=== PATIENT | female | born 1935 | race Two or more races ===

== ENCOUNTER 2017-12-15 14:13 | Inpatient (IN) | payer MEDICARE, MEDICAID ==
--- NOTE | 2017-12-15 15:02 | ED Physician Chart ---
ED Chief Complaint/HPI - Patient Information Date Seen:: 12/15/17 Time Seen:: 14:50 Chief Complaint:: confusion History of Present Illness:: Patient's been demonstrating increasing confusion at home. Patient has a history dementia and her daughter is no longer able to take care of her at home. She is here for admission to [facility] and then to be admitted to a correction facility. Patient is in hospice secondary to mesenteric ischemia. Allergies:: Allergies Allergy/AdvReac Type Severity Reaction Status Date / Time No Known Allergies Allergy Verified 12/15/17 14:29 Historian:: Family Member Review:: Nurse's Note Reviewed ED Review of Systems - Review of Systems General/Constitutional: No fever, No chills Skin: No skin lesions Head: No headache Eyes: No loss of vision ENT: No earache Neck: No neck pain Cardio Vascular: No chest pain, No palpitations Pulmonary: No SOB GI: No nausea, No vomiting, No diarrhea G/U: No dysuria Musculoskeletal: No bone or joint pain Endocrine: No polyuria, No polydipsia Psychiatric: Prior psych history Hematopoietic: No bruising Allergic/Immuno: No urticaria Neurological: No syncope, No focal symptoms ED Past Medical History - Past Medical History Past Medical History: HTN, Dyslipidemia, PUD/GERD, Arthritis, Other (diabetes; diverticulosis; mesenteric ischemia; osteoporosis; neuropathy; chronic abdominal pain secondary to mesenteric ischemia) Family History: None Social History: Non Smoker, No Alcohol Surgical History: Appendectomy, other (craniotomy for tumor) Psychiatricy History: Dementia Medication: Reviewed ED Labs/Radiology/EKG Results - Lab Results Results: Laboratory Results - last 24 hr 12/15/17 12/15/17 12/15/17 15:06 15:06 15:06 WBC 6.8 RBC 4.30 Hgb 12.2 Hct 37.1 L MCV 86.1 MCH 28.4 MCHC Differential 33.0 RDW 14.5 Plt Count 378 MPV 7.7 Neutrophils % 73.3 Lymphocytes % 19.6 L Monocytes % 5.8 Eosinophils % 0.1 Basophils % 1.2 Sodium 134 L Potassium 4.3 Chloride 100 Carbon Dioxide 26.1 Anion Gap 12.2 BUN 16 Creatinine 0.9 Est GFR ( Amer) TNP Est GFR (Non-Af Amer) TNP BUN/Creatinine Ratio 17.8 Glucose 104 Calcium 10.2 Total Bilirubin 0.2 L AST 13 ALT 10 Alkaline Phosphatase 51 Total Protein 7.1 Albumin 4.1 Globulin 3.0 Albumin/Globulin Ratio 1.4 Triglycerides 166 H Cholesterol 200 LDL Cholesterol Direct 129 HDL Cholesterol 37 TSH 11.97 H Salicylates < 25.0 L Acetaminophen 12.1 Ethyl Alcohol < 10 - Radiology Results Results: CAT scan of abdomen and pelvis showed diverticulosis without diverticulitis - EKG Interpretations Rate & Rhythm: normal sinus rhythm with a rate of 60 [place]: normal ED Septic Shock - . Is Septic Shock (SBP<90, OR Lactate>4 mmol\L) present?: No ED Reassessment (Disposition) - Reassessment Reassessment Condition:: Unchanged - Diagnosis Diagnosis:: Dementia; mesenteric ischemia - Patient Disposition Admitted to:: [facility] Condition at Disposition:: Stable, Unchanged
[2017-12-15 15:13] LABS: % BASOPHILS 1.2 % (0.0-2.0); % EOSINOPHILS 0.1 % (0.0-5.0); % LYMPHOCYTES 19.6 % (20.0-50.0); % MONOCYTES 5.8 % (2.0-10.0); % NEUTROPHILS 73.3 % (40.0-80.0); BASOPHILE ABSOLUTE 0.1 Th/cumm (0-0.2); HEMATOCRIT 37.1 % (41.0-60); HEMOGLOBIN 12.2 gm/dL (12-16); LYMPHOCYTE ABSOLUTE 1.3 Th/cmm (1.5-3.0); MEAN CELL VOLUME 86.1 fl (81-100); MEAN CORPUSCULAR HEMOGLOBIN 28.4 pg (27.0-31.0); MEAN PLATELET VOLUME 7.7 fl; MONOCYTE ABSOLUTE 0.4 Th/cmm (0.3-1.0); PLATELET COUNT 378 Th/cmm (150-400); RED CELL DISTRIBUTION WIDTH 14.5 % (11.5-20.0); WHITE BLOOD COUNT 6.8 Th/cmm (4.8-10.8)
[2017-12-15] MEDS ORDERED: Morphine Sulfate 2 mg/mL 1mL Syr IV STA (15:14)
[2017-12-15] MEDS ORDERED: Morphine Sulfate 2 mg/mL 1mL Syr ONE (15:32)
[2017-12-15 15:41] LABS: ACETAMINOPHEN 12.1 ug/mL (10.0-30.0); ALB/GLOB RATIO 1.4 (1.0-1.8); ALBUMIN 4.1 gm/dL (3.7-5.3); ALKALINE PHOSPHATASE 51 U/L (34-104); ANION GAP 12.2 (7.0-16.0); BILIRUBIN,TOTAL 0.2 mg/dL (0.3-1.0); BUN - UREA NITROGEN 16 mg/dL (7-25); CALCIUM SERUM 10.2 mg/dL (8.6-10.3); CARBON DIOXIDE 26.1 mEq/L (21.0-31.0); CHLORIDE 100 mEq/L (98-107); CHOLESTEROL 200 mg/dL (<200); CREATININE - SERUM 0.9 mg/dL (0.6-1.2); GLUCOSE 104 mg/dL (70-105); HDL -HIGH DENSITY LIPOPROTEIN 37 mg/dL (23-92); POTASSIUM SERUM 4.3 mEq/L (3.5-5.1); SALICYLATES (ASPIRIN) < 25.0 mg/L (30.0-100.0); SGOT 13 U/L (13-39); SGPT/ALT 10 U/L (7-52); SODIUM SERUM 134 mEq/L (136-145); TOTAL PROTEIN,SERUM 7.1 gm/dL (6.0-8.3); TRIGLYCERIDES 166 mg/dL (<150)
[2017-12-15 16:31] LABS: URINE SOURCE RANDOM
[2017-12-15 16:35] LABS: URINE BILIRUBIN NEGATIVE (NEGATIVE); URINE BLOOD NEGATIVE (NEGATIVE); URINE GLUCOSE (UA) NEGATIVE (NEGATIVE); URINE KETONE TRACE mg/dL (NEGATIVE); URINE LEUKOCYTE ESTERASE NEGATIVE (NEGATIVE); URINE NITRATE NEGATIVE (NEGATIVE); URINE PROTEIN NEGATIVE (NEGATIVE); URINE UROBILINOGEN 0.2 E.U./dL (0.2 - 1.0)
[2017-12-15 16:36] LABS: URINE CLARITY CLEAR (CLEAR); URINE COLOR YELLOW; URINE MICROSCOPIC INDICATED? YES
[2017-12-15 16:48] LABS: URINE RBC NONE SEEN /hpf (0-5)
[2017-12-15 16:49] LABS: URINE BACTERIA FEW /hpf (NONE SEEN); URINE EPITHELIAL CELLS NONE SEEN /lpf (FEW); URINE WBC 0-2 /hpf (0-5)
[2017-12-15 16:50] LABS: AMPHETAMINE URINE NEGATIVE (NEGATIVE); BARBITURATES URINE NEGATIVE (NEGATIVE); BENZODIAZEPINES QUAL URINE POSITIVE (NEGATIVE); CANNABINOID THC NEGATIVE (NEGATIVE); COCAINE METABOLITE QUAL URINE NEGATIVE (NEGATIVE); METHADONE URINE POSITIVE (NEGATIVE); METHAMPHETAMINES QUAL URINE NEGATIVE (NEGATIVE); OPIATES (MORPHINE) QUAL. URINE NEGATIVE (NEGATIVE); PHENCYCLIDINE (PCP) URINE NEGATIVE (NEGATIVE); TRICYCLICS (TCA) QUAL. URINE NEGATIVE (NEGATIVE)
[2017-12-15 18:33] VITALS: BP 165/86
[2017-12-15 21:05] LABS: CHOLESTEROL 202 mg/dL (<200); HDL -HIGH DENSITY LIPOPROTEIN 39 mg/dL (23-92); TRIGLYCERIDES 168 mg/dL (<150)
[2017-12-16] MEDS ORDERED: Magnesium Hydroxide (MOM) 30 mL UDC PO PRN (04:29)
[2017-12-16] MEDS: Multivitamin Tab PO SCH (08:06)
--- NOTE | 2017-12-16 08:56 | Diagnostic Imaging Report ---
KUB single view HISTORY: Abdominal pain. COMPARISON: CT abdomen and pelvis on 12/15/2017 FINDINGS: Gas-distended stomach and gas-filled loops of bowel are noted in an overall nonspecific pattern. Degenerative changes spine are noted. Cholecystectomy clips are noted. Atherosclerosis is noted. IMPRESSION: Nonspecific bowel gas pattern. Evidence of prior cholecystectomy.
--- NOTE | 2017-12-16 08:59 | Diagnostic Imaging Report ---
CT abdomen and pelvis without intravenous contrast Indication: Mesenteric ischemia Comparison: None, Technique: Axial images were obtained from the lung bases to the bilateral proximal femurs without IV contrast. Coronal reconstructions were made. total DLP: 324, CTDI7 FINDINGS: Chronic changes of the lung bases are seen with hypoventilatory and atelectatic changes. Assessment of the solid organs is limited due to lack of IV contrast. No evidence of focal hepatic lesions. Patient status post cholecystectomy. No focal splenic or hepatic lesions. No focal adrenal lesions. No evidence of hydronephrosis or focal renal lesions. Diverticulosis is noted. Exam is limited due to motion. No definite evidence of diverticulitis. Appendix is not visualized. No free fluid or free air. Mildly distended urinary bladder is noted. Diffuse atherosclerosis is noted. Degenerative changes of the spine are noted. IMPRESSION: Diffuse diverticulosis. No evidence of diverticulitis. Evidence of cholecystectomy Mildly distended urinary bladder Diffuse Atherosclerotic vascular disease. There is no significant focal bowel wall thickening on this noncontrast exam. Given patient's clinical history indicated follow up CT angiogram, mesenteric ischemia protocol may also be obtained.
--- NOTE | 2017-12-16 12:20 | Psychiatric Evaluation ---
DATE OF SERVICE: 12/15/2017 IDENTIFYING DATA: The patient is an 82-year-old woman, currently at home. Information obtained by directly interviewing the patient as well as reviewing the admission papers and they are reliable. JUSTIFICATION OF HOSPITALIZATION: The patient is admitted in view of her noncompliance with the medications and agitation. CHIEF COMPLAINT: "I don't know." HISTORY OF PRESENT ILLNESS: This is the first psychiatric hospitalization to [facility] for this patient who is reported to have been reluctant to comply with the medication due to the evaluation, the patient has been complaining of pain in the lower extremity and a KUB. X-ray is added to see if there is any obstruction. The patient at this time is not providing much of information and is stating that she could not it out why she has to be here. PAST PSYCHIATRIC HISTORY: Details are not known. MEDICAL HISTORY: Physical examination is requested by Dr. Valentin. SUBSTANCE ABUSE HISTORY: None. PHYSICAL OR SEXUAL ABUSE HISTORY: None. LEGAL PROBLEMS: None at this time. STRENGTH AND ASSETS MENTAL STATUS EXAMINATION: The patient is an 82-year-old woman primarily Ecuadorean speaking, superficially cooperative. Eye contact is poor. Mood is noted to be depressed. Affect is constricted. The patient is feeling frustrated. The patient is not suicidal or homicidal, but the patient is reported to have been reluctant to take the medications and has been screaming and yelling, but so far, I have not seen that one, but the patient is too weak to answer any of the questions. Short and long-term memory are noted to be very poor. The patient is not able to contract for safety at this time. DIAGNOSTIC IMPRESSION: AXIS IA: Depressive disorder, not otherwise specified AXIS IB: Dementia and behavioral change, secondary to it. AXIS II: None. AXIS III: As per Dr. Valentin. IMMEDIATE TREATMENT PLAN: The patient is going to be observed on inpatient unit, provided with supportive psychotherapy. The patient is going to be closely monitored and encouraged to verbalize the concerns rather than to act out. JOB# [id number]
--- NOTE | 2017-12-16 16:02 | History & Physical ---
ADMIT DATE: 12/15/2017 INCOMPLETE DICTATION HISTORY OF PRESENT ILLNESS: The patient is an elderly female patient. The patient is known to have history of dementia and she came from home for altered level of consciousness, confusion, increasing agitation. The patient is known to have history of hypertension, arthritis, hyperlipidemia, also osteoporosis, neuropathy, chronic abdominal pain, and history of mesenteric ischemia. The patient has no other problem. No fever, no chills, no rigors, no other problems. PHYSICAL EXAMINATION: HEAD: Normal. ENT: Normal. NECK: Supple, nontender. LUNGS: Clear. CARDIOVASCULAR SYSTEM: S1, S2 heard. ABDOMEN: Soft. Bowel sounds are heard. CENTRAL NERVOUS SYSTEM: The patient is confused. DIAGNOSTIC STUDIES: CAT scan showed ____ diverticulosis. EKG normal sinus rhythm. DIAGNOSES: Severe dementia, altered level of consciousness, psychosis, history of mesenteric ischemia, history of DICTATION ENDS ABRUPTLY HERE. JOB# [id number]
[2017-12-17] MEDS: Multivitamin Tab PO SCH (08:47)
--- NOTE | 2017-12-17 10:00 | Progress Notes ---
DATE: 12/17/2017 SUBJECTIVE: The patient was seen in her room. The patient is awake and alert, but forgetful, poor historian due to medical condition, otherwise the patient appears to be in no acute distress. OBJECTIVE: VITAL SIGNS: Temperature 98.7, heart rate 65, blood pressure 142/83, respirations of 18, and 98% on room air. HEENT: Head is atraumatic and normocephalic. Eyes: Bilateral conjunctivae are clear. Bilateral pupils are equally round and reactive. NECK: Supple. No JVD. CARDIOVASCULAR: S1 and S2, without murmur. PULMONARY: Clear to auscultation. GASTROINTESTINAL: Soft and nontender without guarding. Positive bowel sounds. MUSCULOSKELETAL: No clubbing. No cyanosis noted. ASSESSMENT: 1. Dementia. 2. Osteoarthritis. 3. Insomnia. PLAN: We will continue to keep the patient inpatient to senior mental health unit. We will follow up with a psychiatrist to monitor the patient's condition and behavior. Treatment plans were discussed with the patient's nurse. Treatment plans were discussed with Dr. Valentin. JOB# [id number]
--- NOTE | 2017-12-17 12:11 | Consultation ---
DATE OF CONSULTATION: 12/17/2017 REFERRING PHYSICIAN: Rose Mary Alcazar MD TYPE OF CONSULTATION: Psychology. HISTORY OF PRESENT ILLNESS: The patient is an 82-year-old female. The patient is being admitted due to noncompliance with medication and agitation. The following is by review of the medical record as well as by the patient's self-report. The patient was living at home and was reported apparently by her daughter to be reluctant to comply with medication and becoming easily upset. Upon interview, the patient is not providing much information. The patient is seen with American speaking staff to assist in interpretation. The patient asked why she was being hospitalized. The patient seems to be confused. The patient denied any suicidal ideation, plan or intention. PAST MEDICAL HISTORY: Please see history and physical by Dr. Valentin. PAST PSYCHIATRIC HISTORY: Details are unknown. SUBSTANCE ABUSE HISTORY: The patient denied any history. PSYCHOSOCIAL HISTORY: The patient did not answer questions about occupational or educational history or mormonism affiliation. The patient states that her daughter is very involved in her care. The patient states that she lives alone in her own apartment. The patient did not answer questions about history of physical or sexual abuse or current legal problems. MENTAL STATUS EXAMINATION: The patient appears to be her stated age. Attitude is superficially cooperative. The patient is primarily American speaking. Therefore, American speaking staff was available for interpretation for this clinical interview. Speech is slow and delayed. Eye contact is poor. Mood is depressed. Affect is mood congruent and sullen. Thought process shows to be somewhat confused. The patient is stating that she feels frustrated. According to the record, the patient has had some yelling episodes in the past. The patient has been reluctant to stay compliant with her medication. She denied any auditory or visual hallucinations. She denied any suicidal or homicidal ideation, plan or intention. The patient's impulse control is limited. Concentration is poor. Sensorium is alert and oriented to self only. The patient did not participate in the memory assessment. The patient did not participate in the interpretation of proverbs. Insight is poor. Judgment is compromised. DIAGNOSTIC IMPRESSION: AXIS I: 1. Depressive disorder, not otherwise specified. 2. Provisional diagnosis of dementia with behavioral disturbance. AXIS II: Deferred. AXIS III: Per Dr. Valentin. TREATMENT PLAN: The patient has been seen by Dr. Guntupalli for psychiatric evaluation and for the management of the patient's psychotropic medications. We will provide supportive psychotherapy to include reality orientation, differentiation and integration. We will provide coping strategies and skills for phase of life issues. We will provide motivational enhancement for the patient to become compliant and stay compliant with all aspects of her care and treatment and specifically to continue compliance with her medication. We will encourage the patient to verbally contract for safety. We will encourage the patient to verbalize all concerns. We will continue to provide supportive therapy throughout the patient's hospital stay. We will provide insight oriented as well as cognitive behavioral approaches to reduce the patient's depression. Thank you Dr. Alcazar for this consult and the opportunity to participate in this patient's care. [facility]# [id number] [place]
--- NOTE | 2017-12-17 16:06 | Progress Notes ---
DATE: 12/17/2017 PSYCHIATRIC PROGRESS NOTE PROGRESS ON THE UNIT: Staff was spoken to. The patient is interviewed. Mood is noted to be irritable. Affect is constricted. The patient has been able to get up and then pacing on the unit. Insight and judgment at this time are noted to be still impaired. Impulse control is noted to be limited. The patient is reported to have been getting easily agitated. In view of that, it is decided to add the patient with 12.5 mg of Seroquel tonight and follow the patient up with supportive therapy. JOB# [id number]
[2017-12-18] MEDS: fentaNYL 25 mcg/hr Tdm Patch TD SCH (09:27)
[2017-12-18] MEDS: Multivitamin Tab PO SCH (09:27)
--- NOTE | 2017-12-18 09:52 | General Progress Note ---
Subjective - Review of Systems Events since last encounter: patient is irritable awake and confused at times Objective - Results Result Diagrams: 12/15/17 15:06 12/15/17 15:06 Recent Labs: Laboratory Last Values WBC 6.8 Th/cmm (4.8-10.8) 12/15/17 15:06 RBC 4.30 Mil/cmm (3.80-5.20) 12/15/17 15:06 Hgb 12.2 gm/dL (12-16) 12/15/17 15:06 Hct 37.1 % (41.0-60) L 12/15/17 15:06 MCV 86.1 fl (81-100) 12/15/17 15:06 MCH 28.4 pg (27.0-31.0) 12/15/17 15:06 MCHC Differential 33.0 pg (28.0-36.0) 12/15/17 15:06 RDW 14.5 % (11.5-20.0) 12/15/17 15:06 Plt Count 378 Th/cmm (150-400) 12/15/17 15:06 MPV 7.7 fl 12/15/17 15:06 Neutrophils % 73.3 % (40.0-80.0) 12/15/17 15:06 Lymphocytes % 19.6 % (20.0-50.0) L 12/15/17 15:06 Monocytes % 5.8 % (2.0-10.0) 12/15/17 15:06 Eosinophils % 0.1 % (0.0-5.0) 12/15/17 15:06 Basophils % 1.2 % (0.0-2.0) 12/15/17 15:06 Sodium 134 mEq/L (136-145) L 12/15/17 15:06 Potassium 4.3 mEq/L (3.5-5.1) 12/15/17 15:06 Chloride 100 mEq/L (98-107) 12/15/17 15:06 Carbon Dioxide 26.1 mEq/L (21.0-31.0) 12/15/17 15:06 Anion Gap 12.2 (7.0-16.0) 12/15/17 15:06 BUN 16 mg/dL (7-25) 12/15/17 15:06 Creatinine 0.9 mg/dL (0.6-1.2) 12/15/17 15:06 Est GFR ( Amer) TNP 12/15/17 15:06 Est GFR (Non-Af Amer) TNP 12/15/17 15:06 BUN/Creatinine Ratio 17.8 12/15/17 15:06 Glucose 104 mg/dL (70-105) 12/15/17 15:06 Calcium 10.2 mg/dL (8.6-10.3) 12/15/17 15:06 Total Bilirubin 0.2 mg/dL (0.3-1.0) L 12/15/17 15:06 AST 13 U/L (13-39) 12/15/17 15:06 ALT 10 U/L (7-52) 12/15/17 15:06 Alkaline Phosphatase 51 U/L (34-104) 12/15/17 15:06 Total Protein 7.1 gm/dL (6.0-8.3) 12/15/17 15:06 Albumin 4.1 gm/dL (3.7-5.3) 12/15/17 15:06 Globulin 3.0 gm/dL 12/15/17 15:06 Albumin/Globulin Ratio 1.4 (1.0-1.8) 12/15/17 15:06 Triglycerides 168 mg/dL (<150) H 12/15/17 15:06 Cholesterol 202 mg/dL (<200) H 12/15/17 15:06 LDL Cholesterol Direct 131 mg/dL (75-193) 12/15/17 15:06 HDL Cholesterol 39 mg/dL (23-92) 12/15/17 15:06 Lipase 42 U/L (11-82) 12/15/17 15:06 TSH 11.97 uIU/ml (0.34-5.60) H 12/15/17 15:06 Urine Source RANDOM 12/15/17 14:30 Urine Color YELLOW 12/15/17 14:30 Urine Clarity CLEAR (CLEAR) 12/15/17 14:30 Urine pH 6.0 (4.6 - 8.0) 12/15/17 14:30 Ur Specific [place] 1.015 (1.005-1.030) 12/15/17 14:30 Urine Protein NEGATIVE mg/dL (NEGATIVE) 12/15/17 14:30 Urine Glucose (UA) NEGATIVE mg/dL (NEGATIVE) 12/15/17 14:30 Urine Ketones TRACE mg/dL (NEGATIVE) 12/15/17 14:30 Urine Blood NEGATIVE (NEGATIVE) 12/15/17 14:30 Urine Nitrate NEGATIVE (NEGATIVE) 12/15/17 14:30 Urine Bilirubin NEGATIVE (NEGATIVE) 12/15/17 14:30 Urine Urobilinogen 0.2 E.U./dL (0.2 - 1.0) 12/15/17 14:30 Ur Leukocyte Esterase NEGATIVE (NEGATIVE) 12/15/17 14:30 Urine RBC NONE SEEN /hpf (0-5) 12/15/17 14:30 Urine WBC 0-2 /hpf (0-5) 12/15/17 14:30 Ur Epithelial Cells NONE SEEN /lpf (FEW) 12/15/17 14:30 Calcium Oxalate Crystal FEW /hpf 12/15/17 14:30 Urine Bacteria FEW /hpf (NONE SEEN) 12/15/17 14:30 Salicylates < 25.0 mg/L (30.0-100.0) L 12/15/17 15:06 Urine Opiates Screen NEGATIVE (NEGATIVE) 12/15/17 14:30 Urine Methadone Screen POSITIVE (NEGATIVE) 12/15/17 14:30 Acetaminophen 12.1 ug/mL (10.0-30.0) 12/15/17 15:06 Ur Barbiturates Screen NEGATIVE (NEGATIVE) 12/15/17 14:30 Ur Tricyclics Screen NEGATIVE (NEGATIVE) 12/15/17 14:30 Ur Phencyclidine Scrn NEGATIVE (NEGATIVE) 12/15/17 14:30 Amphetamines Screen NEGATIVE (NEGATIVE) 12/15/17 14:30 U Methamphetamines Scrn NEGATIVE (NEGATIVE) 12/15/17 14:30 U Benzodiazepines Scrn POSITIVE (NEGATIVE) H 12/15/17 14:30 U Cocaine Metab Screen NEGATIVE (NEGATIVE) 12/15/17 14:30 U Cannabinoids Screen NEGATIVE (NEGATIVE) 12/15/17 14:30 Ethyl Alcohol < 10 mg/dL (0-10) 12/15/17 15:06 - Physical Exam Vitals and I&O: Vital Signs Temp 98.6 F 12/18/17 05:58 Pulse 61 12/18/17 05:58 Resp 19 12/18/17 05:58 BP 145/72 12/18/17 05:58 Pulse Ox 98 12/18/17 05:58 Intake & Output 12/17/17 12/18/17 12/18/17 18:59 06:59 18:59 Intake Total 850 240 Balance 850 240 Intake: Oral 850 240 Other: # Voids 4 2 # Bowel Movements 1 Active Medications: Current Medications Acetaminophen (Tylenol) 650 mg PO Q6H PRN PRN Reason: Pain (Moderate) Stop: 02/14/18 04:26 Last Admin: 12/17/17 05:58 Dose: 650 mg Fentanyl (Duragesic 25 Mcg/Hr Tdm Patch) 1 patch TD Q72HR CRISTIAN; Protocol Stop: 02/16/18 08:59 Last Admin: 12/18/17 09:27 Dose: 1 patch Lorazepam (Ativan) 1 mg PO Q4HR PRN; Protocol PRN Reason: Agitation Stop: 02/14/18 04:30 Last Admin: 12/17/17 08:47 Dose: 1 mg Magnesium Hydroxide (Milk Of Magnesia) 30 ml PO HS PRN PRN Reason: Constipation Stop: 02/14/18 04:28 Last Admin: 12/16/17 08:05 Dose: 30 ml Multivitamins/Vitamin C (Theragran) 1 tab PO DAILY CRISTIAN Stop: 02/14/18 08:59 Last Admin: 12/18/17 09:27 Dose: 1 tab Quetiapine Fumarate (Seroquel) 12.5 mg PO HS CRISTIAN; Protocol Stop: 02/15/18 20:59 Last Admin: 12/17/17 20:41 Dose: 12.5 mg Zolpidem Tartrate (Ambien) 5 mg PO HS PRN PRN Reason: Insomnia Stop: 02/14/18 04:29 Last Admin: 12/17/17 20:41 Dose: 5 mg
--- NOTE | 2017-12-18 20:39 | Progress Notes ---
DATE: 12/18/2017 PSYCHIATRIC PROGRESS NOTE SUBJECTIVE: Staff was spoken to. The patient is interviewed. Mood is noted to be irritable. Affect is constricted. Insight and judgment are noted to be still impaired. The patient has dementia and the patient is stating that she has been in here for 2 weeks and daughter is coming to pick her up. The patient has no place to return to at this time. ASSESSMENT: The patient is still impulsive and demented. PLAN: To continue the patient with the current medications. I encouraged the patient to verbalize the concerns rather than to act out. JOB# [id number]
[2017-12-19] MEDS: Multivitamin Tab PO SCH (09:35)
--- NOTE | 2017-12-19 14:30 | General Progress Note ---
Subjective - Review of Systems Events since last encounter: patient demented with no signs of pain Objective - Results Result Diagrams: 12/15/17 15:06 12/15/17 15:06 Recent Labs: Laboratory Last Values WBC 6.8 Th/cmm (4.8-10.8) 12/15/17 15:06 RBC 4.30 Mil/cmm (3.80-5.20) 12/15/17 15:06 Hgb 12.2 gm/dL (12-16) 12/15/17 15:06 Hct 37.1 % (41.0-60) L 12/15/17 15:06 MCV 86.1 fl (81-100) 12/15/17 15:06 MCH 28.4 pg (27.0-31.0) 12/15/17 15:06 MCHC Differential 33.0 pg (28.0-36.0) 12/15/17 15:06 RDW 14.5 % (11.5-20.0) 12/15/17 15:06 Plt Count 378 Th/cmm (150-400) 12/15/17 15:06 MPV 7.7 fl 12/15/17 15:06 Neutrophils % 73.3 % (40.0-80.0) 12/15/17 15:06 Lymphocytes % 19.6 % (20.0-50.0) L 12/15/17 15:06 Monocytes % 5.8 % (2.0-10.0) 12/15/17 15:06 Eosinophils % 0.1 % (0.0-5.0) 12/15/17 15:06 Basophils % 1.2 % (0.0-2.0) 12/15/17 15:06 Sodium 134 mEq/L (136-145) L 12/15/17 15:06 Potassium 4.3 mEq/L (3.5-5.1) 12/15/17 15:06 Chloride 100 mEq/L (98-107) 12/15/17 15:06 Carbon Dioxide 26.1 mEq/L (21.0-31.0) 12/15/17 15:06 Anion Gap 12.2 (7.0-16.0) 12/15/17 15:06 BUN 16 mg/dL (7-25) 12/15/17 15:06 Creatinine 0.9 mg/dL (0.6-1.2) 12/15/17 15:06 Est GFR ( Amer) TNP 12/15/17 15:06 Est GFR (Non-Af Amer) TNP 12/15/17 15:06 BUN/Creatinine Ratio 17.8 12/15/17 15:06 Glucose 104 mg/dL (70-105) 12/15/17 15:06 Calcium 10.2 mg/dL (8.6-10.3) 12/15/17 15:06 Total Bilirubin 0.2 mg/dL (0.3-1.0) L 12/15/17 15:06 AST 13 U/L (13-39) 12/15/17 15:06 ALT 10 U/L (7-52) 12/15/17 15:06 Alkaline Phosphatase 51 U/L (34-104) 12/15/17 15:06 Total Protein 7.1 gm/dL (6.0-8.3) 12/15/17 15:06 Albumin 4.1 gm/dL (3.7-5.3) 12/15/17 15:06 Globulin 3.0 gm/dL 12/15/17 15:06 Albumin/Globulin Ratio 1.4 (1.0-1.8) 12/15/17 15:06 Triglycerides 168 mg/dL (<150) H 12/15/17 15:06 Cholesterol 202 mg/dL (<200) H 12/15/17 15:06 LDL Cholesterol Direct 131 mg/dL (75-193) 12/15/17 15:06 HDL Cholesterol 39 mg/dL (23-92) 12/15/17 15:06 Lipase 42 U/L (11-82) 12/15/17 15:06 TSH 11.97 uIU/ml (0.34-5.60) H 12/15/17 15:06 Urine Source RANDOM 12/15/17 14:30 Urine Color YELLOW 12/15/17 14:30 Urine Clarity CLEAR (CLEAR) 12/15/17 14:30 Urine pH 6.0 (4.6 - 8.0) 12/15/17 14:30 Ur Specific [place] 1.015 (1.005-1.030) 12/15/17 14:30 Urine Protein NEGATIVE mg/dL (NEGATIVE) 12/15/17 14:30 Urine Glucose (UA) NEGATIVE mg/dL (NEGATIVE) 12/15/17 14:30 Urine Ketones TRACE mg/dL (NEGATIVE) 12/15/17 14:30 Urine Blood NEGATIVE (NEGATIVE) 12/15/17 14:30 Urine Nitrate NEGATIVE (NEGATIVE) 12/15/17 14:30 Urine Bilirubin NEGATIVE (NEGATIVE) 12/15/17 14:30 Urine Urobilinogen 0.2 E.U./dL (0.2 - 1.0) 12/15/17 14:30 Ur Leukocyte Esterase NEGATIVE (NEGATIVE) 12/15/17 14:30 Urine RBC NONE SEEN /hpf (0-5) 12/15/17 14:30 Urine WBC 0-2 /hpf (0-5) 12/15/17 14:30 Ur Epithelial Cells NONE SEEN /lpf (FEW) 12/15/17 14:30 Calcium Oxalate Crystal FEW /hpf 12/15/17 14:30 Urine Bacteria FEW /hpf (NONE SEEN) 12/15/17 14:30 Salicylates < 25.0 mg/L (30.0-100.0) L 12/15/17 15:06 Urine Opiates Screen NEGATIVE (NEGATIVE) 12/15/17 14:30 Urine Methadone Screen POSITIVE (NEGATIVE) 12/15/17 14:30 Acetaminophen 12.1 ug/mL (10.0-30.0) 12/15/17 15:06 Ur Barbiturates Screen NEGATIVE (NEGATIVE) 12/15/17 14:30 Ur Tricyclics Screen NEGATIVE (NEGATIVE) 12/15/17 14:30 Ur Phencyclidine Scrn NEGATIVE (NEGATIVE) 12/15/17 14:30 Amphetamines Screen NEGATIVE (NEGATIVE) 12/15/17 14:30 U Methamphetamines Scrn NEGATIVE (NEGATIVE) 12/15/17 14:30 U Benzodiazepines Scrn POSITIVE (NEGATIVE) H 12/15/17 14:30 U Cocaine Metab Screen NEGATIVE (NEGATIVE) 12/15/17 14:30 U Cannabinoids Screen NEGATIVE (NEGATIVE) 12/15/17 14:30 Ethyl Alcohol < 10 mg/dL (0-10) 12/15/17 15:06 - Physical Exam Vitals and I&O: Vital Signs Temp 98.1 F 12/19/17 05:35 Pulse 61 12/19/17 05:35 Resp 18 12/19/17 05:35 BP 153/62 12/19/17 05:35 Pulse Ox 96 12/19/17 05:35 Intake & Output 12/18/17 12/19/17 12/19/17 18:59 06:59 18:59 Intake Total 720 Balance 720 Intake: Oral 720 Other: # Voids 2 Active Medications: Current Medications Acetaminophen (Tylenol) 650 mg PO Q6H PRN PRN Reason: Pain (Moderate) Stop: 02/14/18 04:26 Last Admin: 12/18/17 15:55 Dose: 650 mg Fentanyl (Duragesic 25 Mcg/Hr Tdm Patch) 1 patch TD Q72HR CRISTIAN; Protocol Stop: 02/16/18 08:59 Last Admin: 12/18/17 09:27 Dose: 1 patch Lorazepam (Ativan) 1 mg PO Q4HR PRN; Protocol PRN Reason: Agitation Stop: 02/14/18 04:30 Last Admin: 12/18/17 18:06 Dose: 1 mg Magnesium Hydroxide (Milk Of Magnesia) 30 ml PO HS PRN PRN Reason: Constipation Stop: 02/14/18 04:28 Last Admin: 12/16/17 08:05 Dose: 30 ml Multivitamins/Vitamin C (Theragran) 1 tab PO DAILY CRISTIAN Stop: 02/14/18 08:59 Last Admin: 12/19/17 09:35 Dose: 1 tab Quetiapine Fumarate (Seroquel) 12.5 mg PO HS CRISTIAN; Protocol Stop: 02/15/18 20:59 Last Admin: 12/18/17 21:06 Dose: 12.5 mg Zolpidem Tartrate (Ambien) 5 mg PO HS PRN PRN Reason: Insomnia Stop: 02/14/18 04:29 Last Admin: 12/17/17 20:41 Dose: 5 mg
--- NOTE | 2017-12-20 02:22 | Progress Notes ---
DATE: 12/19/2017 PSYCHIATRIC PROGRESS NOTE SUBJECTIVE: Staff was spoken to. The patient is interviewed. Mood is noted to be irritable. Affect is constricted. Insight and judgment at this time are noted to be still impaired. Impulse control is noted to be limited. Coping skills are noted to be limited. The patient has been having difficult time to cope with the stress and the patient is going to be placed on low dose of the lorazepam, the previous dose of the lorazepam is going to be decreased to 0.5 mg q.8 hours on a p.r.n. basis. ASSESSMENT: The patient is still depressed and paranoid. PLAN: To continue the patient with supportive therapy. Continue the patient with Seroquel and follow the patient up. JOB# [id number]
[2017-12-20] MEDS: Multivitamin Tab PO SCH (09:16)
--- NOTE | 2017-12-20 12:48 | Progress Notes ---
DATE: 12/20/2017 PSYCHIATRIC PROGRESS NOTE PROGRESS ON THE UNIT: Staff was spoken to. The patient is interviewed. Mood is noted to be anxious. The patient's coping skills are noted to be poor at this time. Sleep and appetite are also noted to be very poor. The patient has been fixated on leaving the unit. The patient is sleeping okay, but the appetite is noted to be still poor. ASSESSMENT: The patient is still having difficult time to cope with the stress. PLAN: To continue the patient with supportive therapy. I encouraged the patient to verbalize the concerns rather than to act out. JOB# [id number]
--- NOTE | 2017-12-20 13:38 | Internal Medicine Prog Note ---
Internal Medicine Subjective - Subjective Service Date: 12/20/17 Patient seen and examined:: with staff Patient is:: awake Per staff patient has:: tolerating meds Internal Medicine Objective - Results Result Diagrams: 12/15/17 15:06 12/15/17 15:06 Recent Labs: Laboratory Last Values WBC 6.8 Th/cmm (4.8-10.8) 12/15/17 15:06 RBC 4.30 Mil/cmm (3.80-5.20) 12/15/17 15:06 Hgb 12.2 gm/dL (12-16) 12/15/17 15:06 Hct 37.1 % (41.0-60) L 12/15/17 15:06 MCV 86.1 fl (81-100) 12/15/17 15:06 MCH 28.4 pg (27.0-31.0) 12/15/17 15:06 MCHC Differential 33.0 pg (28.0-36.0) 12/15/17 15:06 RDW 14.5 % (11.5-20.0) 12/15/17 15:06 Plt Count 378 Th/cmm (150-400) 12/15/17 15:06 MPV 7.7 fl 12/15/17 15:06 Neutrophils % 73.3 % (40.0-80.0) 12/15/17 15:06 Lymphocytes % 19.6 % (20.0-50.0) L 12/15/17 15:06 Monocytes % 5.8 % (2.0-10.0) 12/15/17 15:06 Eosinophils % 0.1 % (0.0-5.0) 12/15/17 15:06 Basophils % 1.2 % (0.0-2.0) 12/15/17 15:06 Sodium 134 mEq/L (136-145) L 12/15/17 15:06 Potassium 4.3 mEq/L (3.5-5.1) 12/15/17 15:06 Chloride 100 mEq/L (98-107) 12/15/17 15:06 Carbon Dioxide 26.1 mEq/L (21.0-31.0) 12/15/17 15:06 Anion Gap 12.2 (7.0-16.0) 12/15/17 15:06 BUN 16 mg/dL (7-25) 12/15/17 15:06 Creatinine 0.9 mg/dL (0.6-1.2) 12/15/17 15:06 Est GFR ( Amer) TNP 12/15/17 15:06 Est GFR (Non-Af Amer) TNP 12/15/17 15:06 BUN/Creatinine Ratio 17.8 12/15/17 15:06 Glucose 104 mg/dL (70-105) 12/15/17 15:06 Calcium 10.2 mg/dL (8.6-10.3) 12/15/17 15:06 Total Bilirubin 0.2 mg/dL (0.3-1.0) L 12/15/17 15:06 AST 13 U/L (13-39) 12/15/17 15:06 ALT 10 U/L (7-52) 12/15/17 15:06 Alkaline Phosphatase 51 U/L (34-104) 12/15/17 15:06 Total Protein 7.1 gm/dL (6.0-8.3) 12/15/17 15:06 Albumin 4.1 gm/dL (3.7-5.3) 12/15/17 15:06 Globulin 3.0 gm/dL 12/15/17 15:06 Albumin/Globulin Ratio 1.4 (1.0-1.8) 12/15/17 15:06 Triglycerides 168 mg/dL (<150) H 12/15/17 15:06 Cholesterol 202 mg/dL (<200) H 12/15/17 15:06 LDL Cholesterol Direct 131 mg/dL (75-193) 12/15/17 15:06 HDL Cholesterol 39 mg/dL (23-92) 12/15/17 15:06 Lipase 42 U/L (11-82) 12/15/17 15:06 TSH 11.97 uIU/ml (0.34-5.60) H 12/15/17 15:06 Urine Source RANDOM 12/15/17 14:30 Urine Color YELLOW 12/15/17 14:30 Urine Clarity CLEAR (CLEAR) 12/15/17 14:30 Urine pH 6.0 (4.6 - 8.0) 12/15/17 14:30 Ur Specific [place] 1.015 (1.005-1.030) 12/15/17 14:30 Urine Protein NEGATIVE mg/dL (NEGATIVE) 12/15/17 14:30 Urine Glucose (UA) NEGATIVE mg/dL (NEGATIVE) 12/15/17 14:30 Urine Ketones TRACE mg/dL (NEGATIVE) 12/15/17 14:30 Urine Blood NEGATIVE (NEGATIVE) 12/15/17 14:30 Urine Nitrate NEGATIVE (NEGATIVE) 12/15/17 14:30 Urine Bilirubin NEGATIVE (NEGATIVE) 12/15/17 14:30 Urine Urobilinogen 0.2 E.U./dL (0.2 - 1.0) 12/15/17 14:30 Ur Leukocyte Esterase NEGATIVE (NEGATIVE) 12/15/17 14:30 Urine RBC NONE SEEN /hpf (0-5) 12/15/17 14:30 Urine WBC 0-2 /hpf (0-5) 12/15/17 14:30 Ur Epithelial Cells NONE SEEN /lpf (FEW) 12/15/17 14:30 Calcium Oxalate Crystal FEW /hpf 12/15/17 14:30 Urine Bacteria FEW /hpf (NONE SEEN) 12/15/17 14:30 Salicylates < 25.0 mg/L (30.0-100.0) L 12/15/17 15:06 Urine Opiates Screen NEGATIVE (NEGATIVE) 12/15/17 14:30 Urine Methadone Screen POSITIVE (NEGATIVE) 12/15/17 14:30 Acetaminophen 12.1 ug/mL (10.0-30.0) 12/15/17 15:06 Ur Barbiturates Screen NEGATIVE (NEGATIVE) 12/15/17 14:30 Ur Tricyclics Screen NEGATIVE (NEGATIVE) 12/15/17 14:30 Ur Phencyclidine Scrn NEGATIVE (NEGATIVE) 12/15/17 14:30 Amphetamines Screen NEGATIVE (NEGATIVE) 12/15/17 14:30 U Methamphetamines Scrn NEGATIVE (NEGATIVE) 12/15/17 14:30 U Benzodiazepines Scrn POSITIVE (NEGATIVE) H 12/15/17 14:30 U Cocaine Metab Screen NEGATIVE (NEGATIVE) 12/15/17 14:30 U Cannabinoids Screen NEGATIVE (NEGATIVE) 12/15/17 14:30 Ethyl Alcohol < 10 mg/dL (0-10) 12/15/17 15:06 - Physical Exam Vitals and I&O: Vital Signs Temp 98.0 F 12/20/17 04:50 Pulse 67 12/20/17 04:50 Resp 18 12/20/17 04:50 BP 128/93 12/20/17 04:50 Pulse Ox 97 12/20/17 04:50 Intake & Output 12/19/17 12/20/17 12/20/17 18:59 06:59 18:59 Intake Total 480 Balance 480 Intake: Oral 480 Other: # Voids 2 2 # Bowel Movements 0 Active Medications: Current Medications Acetaminophen (Tylenol) 650 mg PO Q6H PRN PRN Reason: Pain (Moderate) Stop: 02/14/18 04:26 Last Admin: 12/20/17 10:43 Dose: 650 mg Fentanyl (Duragesic 25 Mcg/Hr Tdm Patch) 1 patch TD Q72HR CRISTIAN; Protocol Stop: 02/16/18 08:59 Last Admin: 12/18/17 09:27 Dose: 1 patch Lorazepam (Ativan) 0.5 mg PO Q8HR PRN; Protocol PRN Reason: Agitation Stop: 02/14/18 04:30 Last Admin: 12/20/17 09:16 Dose: 0.5 mg Magnesium Hydroxide (Milk Of Magnesia) 30 ml PO HS PRN PRN Reason: Constipation Stop: 02/14/18 04:28 Last Admin: 12/16/17 08:05 Dose: 30 ml Multivitamins/Vitamin C (Theragran) 1 tab PO DAILY CRISTIAN Stop: 02/14/18 08:59 Last Admin: 12/20/17 09:16 Dose: 1 tab Quetiapine Fumarate (Seroquel) 12.5 mg PO HS CRISTIAN; Protocol Stop: 02/15/18 20:59 Last Admin: 12/19/17 21:11 Dose: 12.5 mg Zolpidem Tartrate (Ambien) 5 mg PO HS PRN PRN Reason: Insomnia Stop: 02/14/18 04:29 Last Admin: 12/19/17 21:12 Dose: 5 mg Internal Medicine Assmt/Plan - Assessment Assessment: HTN Dyslipidemia PUD/GERD Arthritis dm osteoporosis neuropathy chronic abdominal pain secondary to mesenteric ischemia - Plan Plan: continue current plan of care Nutritional Asmnt/Malnutr-PDOC - Dietary Evaluation Malnutrition Findings (Please click <Entered> for more info): Nutritional Asmnt/Malnutrition Start: 12/19/17 17: 03 Text: Status: Active Freq: Protocol: Document 12/19/17 17:04 STEFANO (Rec: 12/19/17 17:10 STEFANO [email or web address]) Nutritional Asmnt/Malnutrition Patient General Information Nutritional Screening Moderate Risk Diagnosis psychosis Pertinent Medical Hx/Surgical Hx HTN, dyslipidemia, PUD/GERD, arthritis, DM, diverticulosis, mesenteric ischemia, osteoporosis, neuropathy, chronic abdominal pain secondary to mesenteric ischemia, appendectomy, craniotomy for tumor Subjective Information Pt confused and anxious at time of visit. Langugage barrier d/t iraqi speaking, but staff present as japanese interpreter. Pt c/o discomfort when chewing food and provided food preferences. Nursing noted intake: 50-75% average. Current Diet Order/ Nutrition Support regular Pertinent Medications MOM, theragran, seroquel Pertinent Labs 12/15: Na 134, triglycerides 166-168, cholesterol 202 Nutritional Hx/Data Height 4 ft 11 in Height (Calculated Centimeters) 149.9 Current Weight (lbs) 90 lb Weight (Calculated Kilograms) 40.8 Weight (Calculated Grams) 59817.3 [place] Body Weight 98 lb Body Mass Index (BMI) 18.1 Weight Status Underweight GI Symptoms GI Symptoms None Last BM 12/17 Difficult in: Chewing Food Allergies No Skin Integrity/Comment: intact Current %PO Fair (50-74%) Estimated Nutritional Goals BEE in Kcals: Using Current wt Calories/Kcals/Kg 27-32 Kcals Calculated 5764-8421 Protein: Using Current wt Protein g/k-1.2 Protein Calculated 41-49 g Fluid: ml 3109-1732 ml (1 ml/kcal) Nutritional Problem 1. Problem Problem inadequate oral intake Etiology chewing difficulties Signs/Symptoms: nursing noted PO intake 50-75% Malnutrition Alert Is there a minimum of two criteria No selected? Query Text:Check all the applicable criteria. A minimum of two criteria are recommended for diagnosis of either severe or non-severe malnutrition. Malnutrition Related to Morbid Obesity Malnutrition related to morbid obesity No Intervention/Recommendation Comments 1. Downgrade texture of current diet order to finely chopped. 2. Updated food preferences. 2. Monitor PO intake, wt, labs , and skin integrity 3. F/U as high risk in 2-3 days, 12/21-12/22 Expected Outcomes/Goals Expected Outcomes/Goals 1. PO intake to improve to at least 75% completed. 2. Wt to gradually increase or remain stable 3. Skin to remain intact and labs to improve to WNL Reviewed by Renee Lara RD
[2017-12-21] MEDS: Multivitamin Tab PO SCH (09:24)
[2017-12-21] MEDS: fentaNYL 25 mcg/hr Tdm Patch TD SCH (10:01)
--- NOTE | 2017-12-21 16:58 | General Progress Note ---
Objective - Results Result Diagrams: 12/15/17 15:06 12/15/17 15:06 Recent Labs: Laboratory Last Values WBC 6.8 Th/cmm (4.8-10.8) 12/15/17 15:06 RBC 4.30 Mil/cmm (3.80-5.20) 12/15/17 15:06 Hgb 12.2 gm/dL (12-16) 12/15/17 15:06 Hct 37.1 % (41.0-60) L 12/15/17 15:06 MCV 86.1 fl (81-100) 12/15/17 15:06 MCH 28.4 pg (27.0-31.0) 12/15/17 15:06 MCHC Differential 33.0 pg (28.0-36.0) 12/15/17 15:06 RDW 14.5 % (11.5-20.0) 12/15/17 15:06 Plt Count 378 Th/cmm (150-400) 12/15/17 15:06 MPV 7.7 fl 12/15/17 15:06 Neutrophils % 73.3 % (40.0-80.0) 12/15/17 15:06 Lymphocytes % 19.6 % (20.0-50.0) L 12/15/17 15:06 Monocytes % 5.8 % (2.0-10.0) 12/15/17 15:06 Eosinophils % 0.1 % (0.0-5.0) 12/15/17 15:06 Basophils % 1.2 % (0.0-2.0) 12/15/17 15:06 Sodium 134 mEq/L (136-145) L 12/15/17 15:06 Potassium 4.3 mEq/L (3.5-5.1) 12/15/17 15:06 Chloride 100 mEq/L (98-107) 12/15/17 15:06 Carbon Dioxide 26.1 mEq/L (21.0-31.0) 12/15/17 15:06 Anion Gap 12.2 (7.0-16.0) 12/15/17 15:06 BUN 16 mg/dL (7-25) 12/15/17 15:06 Creatinine 0.9 mg/dL (0.6-1.2) 12/15/17 15:06 Est GFR ( Amer) TNP 12/15/17 15:06 Est GFR (Non-Af Amer) TNP 12/15/17 15:06 BUN/Creatinine Ratio 17.8 12/15/17 15:06 Glucose 104 mg/dL (70-105) 12/15/17 15:06 Calcium 10.2 mg/dL (8.6-10.3) 12/15/17 15:06 Total Bilirubin 0.2 mg/dL (0.3-1.0) L 12/15/17 15:06 AST 13 U/L (13-39) 12/15/17 15:06 ALT 10 U/L (7-52) 12/15/17 15:06 Alkaline Phosphatase 51 U/L (34-104) 12/15/17 15:06 Total Protein 7.1 gm/dL (6.0-8.3) 12/15/17 15:06 Albumin 4.1 gm/dL (3.7-5.3) 12/15/17 15:06 Globulin 3.0 gm/dL 12/15/17 15:06 Albumin/Globulin Ratio 1.4 (1.0-1.8) 12/15/17 15:06 Triglycerides 168 mg/dL (<150) H 12/15/17 15:06 Cholesterol 202 mg/dL (<200) H 12/15/17 15:06 LDL Cholesterol Direct 131 mg/dL (75-193) 12/15/17 15:06 HDL Cholesterol 39 mg/dL (23-92) 12/15/17 15:06 Lipase 42 U/L (11-82) 12/15/17 15:06 TSH 11.97 uIU/ml (0.34-5.60) H 12/15/17 15:06 Urine Source RANDOM 12/15/17 14:30 Urine Color YELLOW 12/15/17 14:30 Urine Clarity CLEAR (CLEAR) 12/15/17 14:30 Urine pH 6.0 (4.6 - 8.0) 12/15/17 14:30 Ur Specific [place] 1.015 (1.005-1.030) 12/15/17 14:30 Urine Protein NEGATIVE mg/dL (NEGATIVE) 12/15/17 14:30 Urine Glucose (UA) NEGATIVE mg/dL (NEGATIVE) 12/15/17 14:30 Urine Ketones TRACE mg/dL (NEGATIVE) 12/15/17 14:30 Urine Blood NEGATIVE (NEGATIVE) 12/15/17 14:30 Urine Nitrate NEGATIVE (NEGATIVE) 12/15/17 14:30 Urine Bilirubin NEGATIVE (NEGATIVE) 12/15/17 14:30 Urine Urobilinogen 0.2 E.U./dL (0.2 - 1.0) 12/15/17 14:30 Ur Leukocyte Esterase NEGATIVE (NEGATIVE) 12/15/17 14:30 Urine RBC NONE SEEN /hpf (0-5) 12/15/17 14:30 Urine WBC 0-2 /hpf (0-5) 12/15/17 14:30 Ur Epithelial Cells NONE SEEN /lpf (FEW) 12/15/17 14:30 Calcium Oxalate Crystal FEW /hpf 12/15/17 14:30 Urine Bacteria FEW /hpf (NONE SEEN) 12/15/17 14:30 Salicylates < 25.0 mg/L (30.0-100.0) L 12/15/17 15:06 Urine Opiates Screen NEGATIVE (NEGATIVE) 12/15/17 14:30 Urine Methadone Screen POSITIVE (NEGATIVE) 12/15/17 14:30 Acetaminophen 12.1 ug/mL (10.0-30.0) 12/15/17 15:06 Ur Barbiturates Screen NEGATIVE (NEGATIVE) 12/15/17 14:30 Ur Tricyclics Screen NEGATIVE (NEGATIVE) 12/15/17 14:30 Ur Phencyclidine Scrn NEGATIVE (NEGATIVE) 12/15/17 14:30 Amphetamines Screen NEGATIVE (NEGATIVE) 12/15/17 14:30 U Methamphetamines Scrn NEGATIVE (NEGATIVE) 12/15/17 14:30 U Benzodiazepines Scrn POSITIVE (NEGATIVE) H 12/15/17 14:30 U Cocaine Metab Screen NEGATIVE (NEGATIVE) 12/15/17 14:30 U Cannabinoids Screen NEGATIVE (NEGATIVE) 12/15/17 14:30 Ethyl Alcohol < 10 mg/dL (0-10) 12/15/17 15:06 RPR NONREACTIVE (NONREACTIVE) 12/15/17 15:06 - Physical Exam Vitals and I&O: Vital Signs Temp 98.7 F 12/21/17 14:52 Pulse 68 12/21/17 14:52 Resp 18 12/21/17 14:52 BP 130/90 12/21/17 14:52 Pulse Ox 98 12/21/17 14:52 Intake & Output 12/20/17 12/21/17 12/21/17 18:59 06:59 18:59 Intake Total 480 Balance 480 Intake: Oral 480 Other: # Voids 2 Active Medications: Current Medications Acetaminophen (Tylenol) 650 mg PO Q6H PRN PRN Reason: Pain (Moderate) Stop: 02/14/18 04:26 Last Admin: 12/21/17 15:24 Dose: 650 mg Fentanyl (Duragesic 25 Mcg/Hr Tdm Patch) 1 patch TD Q72HR CRISTIAN; Protocol Stop: 02/16/18 08:59 Last Admin: 12/21/17 10:01 Dose: 1 patch Lorazepam (Ativan) 0.5 mg PO Q8HR PRN; Protocol PRN Reason: Agitation Stop: 02/14/18 04:30 Last Admin: 12/20/17 16:59 Dose: 0.5 mg Magnesium Hydroxide (Milk Of Magnesia) 30 ml PO HS PRN PRN Reason: Constipation Stop: 02/14/18 04:28 Last Admin: 12/16/17 08:05 Dose: 30 ml Multivitamins/Vitamin C (Theragran) 1 tab PO DAILY CRISTIAN Stop: 02/14/18 08:59 Last Admin: 12/21/17 09:24 Dose: 1 tab Quetiapine Fumarate (Seroquel) 12.5 mg PO HS CRISTIAN; Protocol Stop: 02/15/18 20:59 Last Admin: 12/20/17 21:06 Dose: 12.5 mg Zolpidem Tartrate (Ambien) 5 mg PO HS PRN PRN Reason: Insomnia Stop: 02/14/18 04:29 Last Admin: 12/20/17 21:07 Dose: 5 mg Nutritional Asmnt/Malnutr-PDOC - Dietary Evaluation Malnutrition Findings (Please click <Entered> for more info): Nutritional Asmnt/Malnutrition Start: 12/19/17 17: 03 Text: Status: Active Freq: Protocol: Document 12/19/17 17:04 STEFANO (Rec: 12/19/17 17:10 STEFANO BERNSTEIN) Nutritional Asmnt/Malnutrition Patient General Information Nutritional Screening Moderate Risk Diagnosis psychosis Pertinent Medical Hx/Surgical Hx HTN, dyslipidemia, PUD/GERD, arthritis, DM, diverticulosis, mesenteric ischemia, osteoporosis, neuropathy, chronic abdominal pain secondary to mesenteric ischemia, appendectomy, craniotomy for tumor Subjective Information Pt confused and anxious at time of visit. Langugage barrier d/t bengali speaking, but staff present as barrel cooper. Pt c/o discomfort when chewing food and provided food preferences. Nursing noted intake: 50-75% average. Current Diet Order/ Nutrition Support regular Pertinent Medications MOM, theragran, seroquel Pertinent Labs 12/15: Na 134, triglycerides 166-168, cholesterol 202 Nutritional Hx/Data Height 1.5 m Height (Calculated Centimeters) 149.9 Current Weight (lbs) 40.823 kg Weight (Calculated Kilograms) 40.8 Weight (Calculated Grams) 10084.3 [place] Body Weight 98 lb Body Mass Index (BMI) 18.1 Weight Status Underweight GI Symptoms GI Symptoms None Last BM 12/17 Difficult in: Chewing Food Allergies No Skin Integrity/Comment: intact Current %PO Fair (50-74%) Estimated Nutritional Goals BEE in Kcals: Using Current wt Calories/Kcals/Kg 27-32 Kcals Calculated 1745-4471 Protein: Using Current wt Protein g/k-1.2 Protein Calculated 41-49 g Fluid: ml 6990-3362 ml (1 ml/kcal) Nutritional Problem 1. Problem Problem inadequate oral intake Etiology chewing difficulties Signs/Symptoms: nursing noted PO intake 50-75% Malnutrition Alert Is there a minimum of two criteria No selected? Query Text:Check all the applicable criteria. A minimum of two criteria are recommended for diagnosis of either severe or non-severe malnutrition. Malnutrition Related to Morbid Obesity Malnutrition related to morbid obesity No Intervention/Recommendation Comments 1. Downgrade texture of current diet order to finely chopped. 2. Updated food preferences. 2. Monitor PO intake, wt, labs , and skin integrity 3. F/U as high risk in 2-3 days, 12/21-12/22 Expected Outcomes/Goals Expected Outcomes/Goals 1. PO intake to improve to at least 75% completed. 2. Wt to gradually increase or remain stable 3. Skin to remain intact and labs to improve to WNL Reviewed by Renee Lara RD
--- NOTE | 2017-12-22 00:10 | Progress Notes ---
DATE: 12/21/2017 PSYCHIATRIC PROGRESS NOTE SUBJECTIVE: Staff was spoken to. The patient is interviewed. Mood is noted to be irritable. Affect is constricted. Insight and judgment at this time are noted to be still impaired. Impulse control seems to be limited. The patient has been pacing on the unit. The patient is paranoid, but at the same time has been very forgetful. ASSESSMENT: The patient is still demented and agitated. PLAN: To continue the patient with the current medications and followup. JOB# [id number]
[2017-12-22] MEDS: Multivitamin Tab PO SCH (09:18)
--- NOTE | 2017-12-22 12:57 | Progress Notes ---
DATE: 12/22/2017 SUBJECTIVE: Staff was spoken to. The patient is interviewed. Mood is noted to be less irritable. Affect is appropriate. The patient is anxious and has been restless, and has been pacing on the unit and the patient is stating that she is doing fairly well and has been helping other patients, and she needs to be out of here. The patient's caser up has been spoken to. They have been able to find a place at [facility]. ASSESSMENT: The patient is stabilizing. PLAN: To discharge the patient today for followup on outpatient basis. JOB# [id number]
--- NOTE | 2017-12-22 15:56 | General Progress Note ---
Subjective - Review of Systems Events since last encounter: patient is doing better today Objective - Results Result Diagrams: 12/15/17 15:06 12/15/17 15:06 Recent Labs: Laboratory Last Values WBC 6.8 Th/cmm (4.8-10.8) 12/15/17 15:06 RBC 4.30 Mil/cmm (3.80-5.20) 12/15/17 15:06 Hgb 12.2 gm/dL (12-16) 12/15/17 15:06 Hct 37.1 % (41.0-60) L 12/15/17 15:06 MCV 86.1 fl (81-100) 12/15/17 15:06 MCH 28.4 pg (27.0-31.0) 12/15/17 15:06 MCHC Differential 33.0 pg (28.0-36.0) 12/15/17 15:06 RDW 14.5 % (11.5-20.0) 12/15/17 15:06 Plt Count 378 Th/cmm (150-400) 12/15/17 15:06 MPV 7.7 fl 12/15/17 15:06 Neutrophils % 73.3 % (40.0-80.0) 12/15/17 15:06 Lymphocytes % 19.6 % (20.0-50.0) L 12/15/17 15:06 Monocytes % 5.8 % (2.0-10.0) 12/15/17 15:06 Eosinophils % 0.1 % (0.0-5.0) 12/15/17 15:06 Basophils % 1.2 % (0.0-2.0) 12/15/17 15:06 Sodium 134 mEq/L (136-145) L 12/15/17 15:06 Potassium 4.3 mEq/L (3.5-5.1) 12/15/17 15:06 Chloride 100 mEq/L (98-107) 12/15/17 15:06 Carbon Dioxide 26.1 mEq/L (21.0-31.0) 12/15/17 15:06 Anion Gap 12.2 (7.0-16.0) 12/15/17 15:06 BUN 16 mg/dL (7-25) 12/15/17 15:06 Creatinine 0.9 mg/dL (0.6-1.2) 12/15/17 15:06 Est GFR ( Amer) TNP 12/15/17 15:06 Est GFR (Non-Af Amer) TNP 12/15/17 15:06 BUN/Creatinine Ratio 17.8 12/15/17 15:06 Glucose 104 mg/dL (70-105) 12/15/17 15:06 Calcium 10.2 mg/dL (8.6-10.3) 12/15/17 15:06 Total Bilirubin 0.2 mg/dL (0.3-1.0) L 12/15/17 15:06 AST 13 U/L (13-39) 12/15/17 15:06 ALT 10 U/L (7-52) 12/15/17 15:06 Alkaline Phosphatase 51 U/L (34-104) 12/15/17 15:06 Total Protein 7.1 gm/dL (6.0-8.3) 12/15/17 15:06 Albumin 4.1 gm/dL (3.7-5.3) 12/15/17 15:06 Globulin 3.0 gm/dL 12/15/17 15:06 Albumin/Globulin Ratio 1.4 (1.0-1.8) 12/15/17 15:06 Triglycerides 168 mg/dL (<150) H 12/15/17 15:06 Cholesterol 202 mg/dL (<200) H 12/15/17 15:06 LDL Cholesterol Direct 131 mg/dL (75-193) 12/15/17 15:06 HDL Cholesterol 39 mg/dL (23-92) 12/15/17 15:06 Lipase 42 U/L (11-82) 12/15/17 15:06 TSH 11.97 uIU/ml (0.34-5.60) H 12/15/17 15:06 Urine Source RANDOM 12/15/17 14:30 Urine Color YELLOW 12/15/17 14:30 Urine Clarity CLEAR (CLEAR) 12/15/17 14:30 Urine pH 6.0 (4.6 - 8.0) 12/15/17 14:30 Ur Specific [place] 1.015 (1.005-1.030) 12/15/17 14:30 Urine Protein NEGATIVE mg/dL (NEGATIVE) 12/15/17 14:30 Urine Glucose (UA) NEGATIVE mg/dL (NEGATIVE) 12/15/17 14:30 Urine Ketones TRACE mg/dL (NEGATIVE) 12/15/17 14:30 Urine Blood NEGATIVE (NEGATIVE) 12/15/17 14:30 Urine Nitrate NEGATIVE (NEGATIVE) 12/15/17 14:30 Urine Bilirubin NEGATIVE (NEGATIVE) 12/15/17 14:30 Urine Urobilinogen 0.2 E.U./dL (0.2 - 1.0) 12/15/17 14:30 Ur Leukocyte Esterase NEGATIVE (NEGATIVE) 12/15/17 14:30 Urine RBC NONE SEEN /hpf (0-5) 12/15/17 14:30 Urine WBC 0-2 /hpf (0-5) 12/15/17 14:30 Ur Epithelial Cells NONE SEEN /lpf (FEW) 12/15/17 14:30 Calcium Oxalate Crystal FEW /hpf 12/15/17 14:30 Urine Bacteria FEW /hpf (NONE SEEN) 12/15/17 14:30 Salicylates < 25.0 mg/L (30.0-100.0) L 12/15/17 15:06 Urine Opiates Screen NEGATIVE (NEGATIVE) 12/15/17 14:30 Urine Methadone Screen POSITIVE (NEGATIVE) 12/15/17 14:30 Acetaminophen 12.1 ug/mL (10.0-30.0) 12/15/17 15:06 Ur Barbiturates Screen NEGATIVE (NEGATIVE) 12/15/17 14:30 Ur Tricyclics Screen NEGATIVE (NEGATIVE) 12/15/17 14:30 Ur Phencyclidine Scrn NEGATIVE (NEGATIVE) 12/15/17 14:30 Amphetamines Screen NEGATIVE (NEGATIVE) 12/15/17 14:30 U Methamphetamines Scrn NEGATIVE (NEGATIVE) 12/15/17 14:30 U Benzodiazepines Scrn POSITIVE (NEGATIVE) H 12/15/17 14:30 U Cocaine Metab Screen NEGATIVE (NEGATIVE) 12/15/17 14:30 U Cannabinoids Screen NEGATIVE (NEGATIVE) 12/15/17 14:30 Ethyl Alcohol < 10 mg/dL (0-10) 12/15/17 15:06 RPR NONREACTIVE (NONREACTIVE) 12/15/17 15:06 - Physical Exam Vitals and I&O: Vital Signs Temp 97 F 12/22/17 05:55 Pulse 67 12/22/17 05:55 Resp 18 12/22/17 05:55 BP 128/76 12/22/17 05:55 Pulse Ox 96 12/22/17 05:55 Intake & Output 12/21/17 12/22/17 12/22/17 18:59 06:59 18:59 Intake Total 0 Balance 0 Intake: Oral 0 Other: # Voids 2 Active Medications: Current Medications Acetaminophen (Tylenol) 650 mg PO Q6H PRN PRN Reason: Pain (Moderate) Stop: 02/14/18 04:26 Last Admin: 12/22/17 14:15 Dose: 650 mg Fentanyl (Duragesic 25 Mcg/Hr Tdm Patch) 1 patch TD Q72HR CRISTIAN; Protocol Stop: 02/16/18 08:59 Last Admin: 12/21/17 10:01 Dose: 1 patch Lorazepam (Ativan) 0.5 mg PO Q8HR PRN; Protocol PRN Reason: Agitation Stop: 02/14/18 04:30 Last Admin: 12/22/17 13:38 Dose: 0.5 mg Magnesium Hydroxide (Milk Of Magnesia) 30 ml PO HS PRN PRN Reason: Constipation Stop: 02/14/18 04:28 Last Admin: 12/16/17 08:05 Dose: 30 ml Multivitamins/Vitamin C (Theragran) 1 tab PO DAILY CRISTIAN Stop: 02/14/18 08:59 Last Admin: 12/22/17 09:18 Dose: 1 tab Quetiapine Fumarate (Seroquel) 12.5 mg PO HS CRISTIAN; Protocol Stop: 02/15/18 20:59 Last Admin: 12/21/17 20:39 Dose: 12.5 mg Zolpidem Tartrate (Ambien) 5 mg PO HS PRN PRN Reason: Insomnia Stop: 02/14/18 04:29 Last Admin: 12/21/17 20:40 Dose: 5 mg Nutritional Asmnt/Malnutr-PDOC - Dietary Evaluation Malnutrition Findings (Please click <Entered> for more info): Nutritional Asmnt/Malnutrition Start: 12/19/17 17: 03 Text: Status: Active Freq: Protocol: Document 12/19/17 17:04 STEFANO (Rec: 12/19/17 17:10 STEFANO BERNSTEIN) Nutritional Asmnt/Malnutrition Patient General Information Nutritional Screening Moderate Risk Diagnosis psychosis Pertinent Medical Hx/Surgical Hx HTN, dyslipidemia, PUD/GERD, arthritis, DM, diverticulosis, mesenteric ischemia, osteoporosis, neuropathy, chronic abdominal pain secondary to mesenteric ischemia, appendectomy, craniotomy for tumor Subjective Information Pt confused and anxious at time of visit. [place] barrier d/t slovak speaking, but staff present as translator and interpreter. Pt c/o discomfort when chewing food and provided food preferences. Nursing noted intake: 50-75% average. Current Diet Order/ Nutrition Support regular Pertinent Medications MOM, theragran, seroquel Pertinent Labs 12/15: Na 134, triglycerides 166-168, cholesterol 202 Nutritional Hx/Data Height 1.5 m Height (Calculated Centimeters) 149.9 Current Weight (lbs) 40.823 kg Weight (Calculated Kilograms) 40.8 Weight (Calculated Grams) 07735.3 [place] Body Weight 98 lb Body Mass Index (BMI) 18.1 Weight Status Underweight GI Symptoms GI Symptoms None Last BM 12/17 Difficult in: Chewing Food Allergies No Skin Integrity/Comment: intact Current %PO Fair (50-74%) Estimated Nutritional Goals BEE in Kcals: Using Current wt Calories/Kcals/Kg 27-32 Kcals Calculated 8800-5814 Protein: Using Current wt Protein g/k-1.2 Protein Calculated 41-49 g Fluid: ml 3508-8061 ml (1 ml/kcal) Nutritional Problem 1. Problem Problem inadequate oral intake Etiology chewing difficulties Signs/Symptoms: nursing noted PO intake 50-75% Malnutrition Alert Is there a minimum of two criteria No selected? Query Text:Check all the applicable criteria. A minimum of two criteria are recommended for diagnosis of either severe or non-severe malnutrition. Malnutrition Related to Morbid Obesity Malnutrition related to morbid obesity No Intervention/Recommendation Comments 1. Downgrade texture of current diet order to finely chopped. 2. Updated food preferences. 2. Monitor PO intake, wt, labs , and skin integrity 3. F/U as high risk in 2-3 days, 12/21-12/22 Expected Outcomes/Goals Expected Outcomes/Goals 1. PO intake to improve to at least 75% completed. 2. Wt to gradually increase or remain stable 3. Skin to remain intact and labs to improve to WNL Reviewed by Renee Lara RD
== END 2017-12-22 18:30 | DRG 884 ==
LOC: ER 14:13 → GERO2 17:34
PROVIDERS: ADMIT Psychiatry & Neurology Psychiatry; ATTEND Psychiatry & Neurology Psychiatry
DX: F03.91 Unspecified dementia, unspecified severity, with behavioral disturbance (principal); K55.059 Acute (reversible) ischemia of intestine, part and extent unspecified; F32.9 Major depressive disorder, single episode, unspecified; I10 Essential (primary) hypertension; E78.5 Hyperlipidemia, unspecified; K21.9 Gastro-esophageal reflux disease without esophagitis; M19.90 Unspecified osteoarthritis, unspecified site; M81.0 Age-related osteoporosis without current pathological fracture; E11.40 Type 2 diabetes mellitus with diabetic neuropathy, unspecified; G89.29 Other chronic pain; R10.9 Unspecified abdominal pain; G47.00 Insomnia, unspecified; Z90.49 Acquired absence of other specified parts of digestive tract
CPT/HCPCS: 36415-UA; 74000-TC; 80053-TC; 80061-TC; 80307; 80320-TC; 80329-TC; 81001-TC; 83690-TC; 84443-TC; 85025-TC; 86592-TC; 93005; 96374; J2270; Z7610